=== PATIENT | female | born 1975 | race Caucasian/White ===

== ENCOUNTER 2023-12-14 17:00 | Observation (INO) | payer OTHER ==
[~2023-12-14] VITALS: Ht 165.1 cm; Wt 78.5 kg
[2023-12-14 17:13] VITALS: BP 140/64; PULSE 50; RESP 14; TEMP 97.6; O2SAT 97
[2023-12-14] MEDS: NACL 0.9% 1,000 ML IV ONE (17:40)
[2023-12-14 17:43] LABS: BASOPHILS # (AUTO) 0.1 K/uL (0.00-0.22); BASOPHILS % (AUTO) 1.1 % (0.0-2.0); EOSINOPHILS # (AUTO) 0.1 K/uL (0-0.4); HEMATOCRIT 37.8 % (36-48); HEMOGLOBIN 13.1 g/dL (12.0-16.0); LYMPHOCYTES # (AUTO) 1.6 K/uL (2.5-16.5); LYMPHOCYTES % (AUTO) 28.3 % (20.5-51.1); MEAN CORPUSCULAR HEMOGLOBIN 31 pg (27-31); MEAN CORPUSCULAR HGB CONC 35 g/dL (33-37); MEAN CORPUSCULAR VOLUME 89.9 fL (80-94); MONOCYTES # (AUTO) 0.4 K/uL (0.8-1.0); MONOCYTES % (AUTO) 7.5 % (1.7-9.3); NEUTROPHILS # (AUTO) 3.6 K/uL (1.8-7.7); NEUTROPHILS % (AUTO) 62.1 % (42.2-75.2); PLATELET COUNT (AUTO) 182 K/uL (140-450); RED BLOOD CELL COUNT(AUTO) 4.21 MIL/uL (4.20-5.40); RED CELL DISTRIBUTION WIDTH 13.2 % (11.6-13.7); WHITE BLOOD COUNT (AUTO) 5.8 K/uL (4.8-10.8)
[2023-12-14] MEDS: ONDANSETRON 4 MG/2 ML VIAL IVP ONE (17:56)
[2023-12-14 18:05] LABS: CALCIUM 8.9 mg/dL (8.5-10.1); CARBON DIOXIDE 27.8 mmol/L (21-32); POTASSIUM 3.8 mmol/L (3.5-5.1)
[2023-12-14 18:20] LABS: FREE T4 (FREE THYROXINE) 1.02 ng/dL (0.76-1.46); MAGNESIUM 2.3 mg/dL (1.8-2.4); PHOSPHORUS 3.4 mg/dL (2.5-4.9); THYROID STIMULATING HORMONE 1.74 uIU/mL (0.34-3.74)
[2023-12-14 18:21] LABS: SALICYLATE < 2.8 mg/dL (2.8-20.0)
[2023-12-14 18:22] LABS: INR 1.11 (0.8-1.2); PARTIAL THROMBOPLASTIN TIME 26.5 secs (22-35.6); PROTHROMBIN TIME 11.5 secs (10.8-13.4)
[2023-12-14 18:23] LABS: ALCOHOL, BLOOD 10 mg/dL (<10)
[2023-12-14 18:56] LABS: ALANINE AMINOTRANSFERASE 25 U/L (12-78); ALBUMIN 3.9 g/dL (3.4-5.0); ALKALINE PHOSPHATASE 81 U/L (50-136); ASPARTATE AMINOTRANSFERASE 21 U/L (15-37); BILIRUBIN,DIRECT 0.1 mg/dL (0.0-0.3); TOTAL BILIRUBIN 0.4 mg/dL (0.0-1.0)
[2023-12-14] MEDS ORDERED: CALCIUM GLUC 1 GM/50 mL NS BAG 50 ML IV ONE (20:36)
[2023-12-14] MEDS: ATROPINE 1 MG/10 ML SYR IVP ONE (20:37)
[2023-12-14] MEDS: CALCIUM GLUCONATE 10% 1,000 MG in NACL 0.9% 50 ML IV ONE (20:43)
[2023-12-14] MEDS ORDERED: FURO-572 PO (21:18)
[2023-12-14] MEDS ORDERED: AMOX-1230 PO (21:18)
[2023-12-14] MEDS ORDERED: ONDANSETRON 4 MG/2 ML VIAL IVP PRN (21:20)
[2023-12-14] MEDS ORDERED: ACETAMINOPHEN 325 MG TAB PO PRN (21:20)
[2023-12-14] MEDS ORDERED: HYDROcodone/APAP 5/325 MG 1 TAB TAB PO PRN (21:20)
[2023-12-14] MEDS ORDERED: KCL 20 MEQ IN 100 mL PREMIX 200 ML IV PRN (21:20)
[2023-12-14] MEDS ORDERED: POTASSIUM CHLORIDE 10 MEQ TABER PO PRN (21:20)
[2023-12-14] MEDS ORDERED: MORPHINE SULFATE 4 MG/ML SYR IVP PRN (21:20)
[2023-12-14] MEDS ORDERED: MAGNESIUM OXIDE 400 MG TAB PO PRN (21:20)
[2023-12-14] MEDS ORDERED: LORazepam 1 MG TAB PO PRN (21:20)
[2023-12-14] MEDS ORDERED: APIX5TAB PO (21:22)
[2023-12-14] MEDS ORDERED: NAPR-337 PO (21:22)
[2023-12-14] MEDS ORDERED: AMLO5TAB PO (21:22)
[2023-12-14] MEDS: LORazepam 1 MG TAB PO ONE (21:57)
[2023-12-14] MEDS: GLUCAGON 1 MG VIAL IVP ONE (21:58)
[2023-12-14 22:05] VITALS: PULSE 53; RESP 18; O2SAT 100
[2023-12-15] VITALS (7 sets, daily range): BP systolic 99–109; BP diastolic 52–59; PULSE 45–99; RESP 18; TEMP 97.4–98.4; O2SAT 99–100
[2023-12-15 07:02] LABS: BASOPHILS # (AUTO) 0.1 K/uL (0.00-0.22); BASOPHILS % (AUTO) 1.1 % (0.0-2.0); EOSINOPHILS # (AUTO) 0.1 K/uL (0-0.4); EOSINOPHILS % (AUTO) 1.9 % (0.0-4.0); HEMATOCRIT 37.6 % (36-48); LYMPHOCYTES # (AUTO) 1.8 K/uL (2.5-16.5); LYMPHOCYTES % (AUTO) 27.5 % (20.5-51.1); MEAN CORPUSCULAR HEMOGLOBIN 31 pg (27-31); MEAN CORPUSCULAR HGB CONC 35 g/dL (33-37); MEAN CORPUSCULAR VOLUME 90.6 fL (80-94); MONOCYTES # (AUTO) 0.4 K/uL (0.8-1.0); MONOCYTES % (AUTO) 6.7 % (1.7-9.3); NEUTROPHILS # (AUTO) 4.1 K/uL (1.8-7.7); NEUTROPHILS % (AUTO) 62.8 % (42.2-75.2); PLATELET COUNT (AUTO) 178 K/uL (140-450); RED BLOOD CELL COUNT(AUTO) 4.15 MIL/uL (4.20-5.40); RED CELL DISTRIBUTION WIDTH 13.6 % (11.6-13.7); WHITE BLOOD COUNT (AUTO) 6.6 K/uL (4.8-10.8)
[2023-12-15 07:05] LABS: ANION GAP 12.8 (8-16); CALCIUM 8.8 mg/dL (8.5-10.1); CARBON DIOXIDE 27.3 mmol/L (21-32); CREATININE 0.9 mg/dL (0.6-1.3); POTASSIUM 4.1 mmol/L (3.5-5.1)
[2023-12-15] MEDS: DOCUSATE SODIUM 100 MG GELCAP PO SCH (08:39)
[2023-12-15] MEDS ORDERED: MEDS-TO-BEDS MC SCH (21:00)
== END 2023-12-15 19:16 | disposition home or self-care (01) ==
LOC: MED 17:00 → MTU 21:21
PROVIDERS: ADMIT Hospitalist; ATTEND Hospitalist
DX: T44.7X1A Poisoning by beta-adrenoreceptor antagonists, accidental (unintentional), initial encounter (principal); I11.0 Hypertensive heart disease with heart failure; I50.9 Heart failure, unspecified; I48.91 Unspecified atrial fibrillation; I21.A1 Myocardial infarction type 2; F41.8 Other specified anxiety disorders; Y92.89 Other specified places as the place of occurrence of the external cause; Z79.01 Long term (current) use of anticoagulants; Z79.899 Other long term (current) drug therapy
CPT/HCPCS: 36415; 71045; 80048; 80076; 82948; 83605; 83735; 83880; 84100; 84439; 84443; 84484; 84703; 85025; 85610; 85730; 87081; 93005; 94760; 96361; 96365; 96372; 96375; 99291; G0378; G0480; G0482; J0461; J0610; J1610; J1644; J2405